=== PATIENT | female | born 1950 | race Caucasian/White ===

== ENCOUNTER → 2018-08-17 | Outpatient (CLI) | payer MEDICARE, OTHER ==
[2016-01-15 12:00] VITALS: BP 146/84
[~2018-08-17] MED LIST: ASCO1TAB2 PO; CHOL100013 PO; NAPR-695 PO
[2018-08-17 17:04] LABS: BASO # 0.1 x10^3/uL (0.0-0.2); BASO % 1 % (0-3); EOS # 0.2 x10^3/uL (0.0-0.7); EOS % 3 % (0-3); HEMATOCRIT 43.3 % (36.0-47.0); HEMOGLOBIN 14.8 g/dL (12.0-15.5); LYMPH # 2.4 x10^3/uL (1.0-4.8); LYMPH % 32 % (24-48); MEAN CORPUSCULAR HEMOGLOBIN 30 pg (25-35); MEAN CORPUSCULAR HGB CONC 34 g/dL (31-37); MEAN CORPUSCULAR VOLUME 88 fL (79-100); MONO # 0.7 x10^3/uL (0.0-1.1); MONO % 10 % (0-9); NEUT % 55 % (31-73); PLATELET COUNT 222 x10^3/uL (140-400); RED BLOOD COUNT 4.95 x10^6/uL (3.50-5.40); RED CELL DISTRIBUTION WIDTH 13.9 % (11.5-14.5); WHITE BLOOD COUNT 7.4 x10^3/uL (4.0-11.0)
[2018-08-17 17:39] LABS: ALBUMIN 4.3 g/dL (3.4-5.0); ALBUMIN/GLOBULIN RATIO 1.3 (1.0-1.7); CALCIUM 9.5 mg/dL (8.5-10.1); CREATININE 0.8 mg/dL (0.6-1.0); POTASSIUM 3.4 mmol/L (3.5-5.1); TOTAL BILIRUBIN 0.4 mg/dL (0.2-1.0); TOTAL PROTEIN 7.5 g/dL (6.4-8.2)
== END | disposition home or self-care (01) ==
LOC: SURGPAT 13:31
PROVIDERS: ATTEND Neurological Surgery
DX: Z01.818 Encounter for other preprocedural examination (principal); M48.02 Spinal stenosis, cervical region; M50.222 Other cervical disc displacement at C5-C6 level; Z88.0 Allergy status to penicillin; Z88.5 Allergy status to narcotic agent
CPT/HCPCS: 36415; 80053; 85025; 87641

== ENCOUNTER → 2018-11-12 | Outpatient (CLI) | payer MEDICARE, OTHER ==
[2018-08-27 11:15] VITALS: BP 154/87
[~2018-11-12] MED LIST changes: +DOCU-109 PO; +METH750T2 PO; +TRAM50TA PO
--- NOTE | 2018-11-12 17:05 | RAD ---
2 view cervical spine series Clinical indications: Follow-up after cervical fusion. FINDINGS: Anterior cervical fusion is seen at C5 and C6. Alignment is normal without anterolisthesis. No discitis or lytic process or acute fracture or prevertebral soft tissue swelling is evident. There is moderate degenerative disc space narrowing and degenerative endplate spurring at C4-5 and C6-7 and C7-T1. There is mild degenerative endplate spurring and disc space narrowing at C2-3 and C3-4. IMPRESSION: Anterior cervical fusion at C5-6. Degenerative cervical spondylosis. Electronically signed by: Trenton Tobias MD (11/12/2018 5:02 PM) [id number]
== END | disposition home or self-care (01) ==
LOC: RAD 15:17
PROVIDERS: ATTEND Neurological Surgery
DX: M47.812 Spondylosis without myelopathy or radiculopathy, cervical region (principal); M43.22 Fusion of spine, cervical region
CPT/HCPCS: 72040